=== PATIENT | male | born 1945 | race Caucasian/White ===

== ENCOUNTER 2022-06-09 08:06 | Day surgery (SDC) | payer MEDICARE, OTHER ==
[~2022-06-09 08:06] MED LIST: Lactated Ringers 1,000 ML IV SCH; Lidocaine 1%/Sod Bicarbonate in NS 8.4% 1 ML Syringe IDERM PRN; Sodium Chloride 0.9% 10 ML Syringe FLUSH PRN
[2022-06-09] MEDS ORDERED: fentaNYL 100 MCG/2 ML SDV ONE (08:44)
[2022-06-09] MEDS ORDERED: Propofol 200 MG/20 ML SDV ONE ×2 (08:44→11:02)
[2022-06-09] MEDS ORDERED: Midazolam 1 MG/ML 2 ML SDV ONE (08:44)
[2022-06-09] MEDS ORDERED: Ondansetron 4 MG/2 ML SDV IVPUSH PRN (08:45)
[2022-06-09] MEDS ORDERED: fentaNYL 100 MCG/2 ML SDV IVPUSH PRN (08:45)
[2022-06-09] MEDS ORDERED: HYDROmorphone 0.5 MG/0.5 ML Syringe IVPUSH PRN (08:45)
[2022-06-09] MEDS ORDERED: Ondansetron 4 MG/2 ML SDV ONE (08:50)
[2022-06-09] MEDS ORDERED: Dexmedetomidine 200 MCG/2 ML SDV ONE (08:51)
[2022-06-09] MEDS ORDERED: ceFAZolin 2 GM Vial ONE (10:21)
[2022-06-09] MEDS ORDERED: Phenylephrine HCl In 0.9% NaCl 1 MG/10 ML Vial ONE (10:33)
[2022-06-09] MEDS: Tranexamic Acid 1,000 MG/10 ML Vial ONE ×2 (10:54→11:20)
[2022-06-09] MEDS: Vancomycin 1 GM SDV ONE ×2 (10:54→11:20)
[2022-06-09] MEDS: Morphine 8 MG, EPINEPHrine 0.3 MG, Cefuroxime 750 MG, Ketorolac 30 MG, Sodium Chloride ... PRN ×10 (10:55→11:13)
[2022-06-09] MEDS ORDERED: ePHEDrine 50 MG/ML SDV ONE (10:59)
[2022-06-09] MEDS ORDERED: EPINEPHrine 1 MG/ML SDV ONE (11:49)
[2022-06-09] MEDS ORDERED: Ropivacaine 0.5% 5 MG/ML 30 ML SDV ONE (11:50)
[2022-06-09] MEDS ORDERED: oxyCODONE 5 MG Tab PO SCH (16:22)
[2022-06-09] MEDS ORDERED: Cyclobenzaprine 10 MG Tab PO PRN (18:36)
[2022-06-09] MEDS ORDERED: Naloxone 0.4 MG/ML SDV IVPUSH PRN (18:37)
[2022-06-09] MEDS ORDERED: Morphine 2 MG/ML SYRINGE IVPUSH PRN (18:37)
[2022-06-09] MEDS: Sodium Chloride 0.9% 10 ML Syringe FLUSH SCH (20:59)
[2022-06-09] MEDS: Potassium Chloride 20 MEQ Tab.ER PO SCH (20:59)
[2022-06-09] MEDS: Metoprolol Succinate 50 MG Tab.ER PO SCH (21:00)
[2022-06-09] MEDS: oxyCODONE 5 MG Tab PO PRN (21:04)
[2022-06-09] MEDS: Ondansetron 4 MG Tab.DIS PO PRN (21:19)
[2022-06-10] MEDS: oxyCODONE 5 MG Tab PO PRN (01:07)
[2022-06-10] MEDS ORDERED: Pantoprazole 40 MG Tab.CR PO SCH (07:00)
[2022-06-10] MEDS: Sodium Chloride 0.9% 10 ML Syringe FLUSH SCH (07:29)
[2022-06-10] MEDS: Furosemide 40 MG Tab PO SCH ×2 (08:15→08:19)
[2022-06-10] MEDS: Metoprolol Succinate 50 MG Tab.ER PO SCH (08:15)
[2022-06-10] MEDS: Potassium Chloride 20 MEQ Tab.ER PO SCH (08:16)
[2022-06-10] MEDS: Ondansetron 4 MG Tab.DIS PO PRN (08:17)
[2022-06-10] MEDS ORDERED: Diltiazem 120 MG Cap.CD PO SCH (09:00)
[2022-06-10] MEDS ORDERED: Cholecalciferol (Vitamin D3) 5,000 UNIT Cap PO SCH (09:00)
[2022-06-10] MEDS ORDERED: Apixaban 5 MG Tab PO SCH (09:00)
[2022-06-10] MEDS ORDERED: Fish Oil/Omega-3 Fatty Acids 1 Gm Cap PO SCH (09:00)
[2022-06-10] MEDS ORDERED: Cholecalciferol (Vitamin D3) 5,000 UNIT Tab PO SCH (09:00)
[2022-06-10] MEDS ORDERED: Acetaminophen/HYDROcodone 325-5 MG Tab PO PRN (10:21)
[2022-06-10] MEDS ORDERED: Metoprolol Succinate 50 MG Tab.ER PO SCH (21:00)
== END 2022-06-10 13:55 | disposition home or self-care (01) ==
LOC: JD.SDS 08:06 → JD.MS 18:08 → JD.SDS 06-10 13:55
PROVIDERS: ATTEND Orthopaedic Surgery
DX: M17.12 Unilateral primary osteoarthritis, left knee (principal); I10 Essential (primary) hypertension; E55.9 Vitamin D deficiency, unspecified; I48.91 Unspecified atrial fibrillation; K21.9 Gastro-esophageal reflux disease without esophagitis; E78.00 Pure hypercholesterolemia, unspecified; Z87.891 Personal history of nicotine dependence; Z79.899 Other long term (current) drug therapy; Z98.890 Other specified postprocedural states
CPT/HCPCS: 01402; 36415; 64450; 73560-26-LT; 73560-LT; 76942; 85610; 97110-GP; 97116-GP; 97161-GP; A9270-GY; C1713; C1776; J0171; J0690; J0697; J1885; J2250; J2270; J2405; J2704; J2795; J3010; J3370; J3490